=== PATIENT | male | born 1960 | race Caucasian/White ===

== ENCOUNTER 2017-06-02 16:28 | Emergency (ER) | payer OTHER, MEDICARE, MEDICAID ==
[~2017-06-02] VITALS: Ht 185.4 cm; Wt 121.0 kg
[~2017-06-02 16:28] MED LIST: CARV3.12 PO; FURO20TA4 PO; INSU100V11 SQ; LANTUS SQ; LISI10TA4 PO; METF10002 PO; SPIR25TA3 PO
[2017-06-02 16:47] VITALS: BP 189/119
[2017-06-02] MEDS ORDERED: HYDROcodone/acetaminophen 5mg/325mg tablet PO ONE (17:25)
[2017-06-02] MEDS ORDERED: ketorolac trometh inj. 60 MG/2 ML VIAL IM ONE (17:25)
[2017-06-02] MEDS ORDERED: IBUP-1985 PO (17:31)
[2017-06-02] MEDS ORDERED: HYDR-3965 PO (17:31)
== END 2017-06-02 17:48 | disposition home or self-care (01) ==
LOC: ER 16:29
DX: M25.512 Pain in left shoulder (principal); E11.9 Type 2 diabetes mellitus without complications; E78.00 Pure hypercholesterolemia, unspecified; I11.0 Hypertensive heart disease with heart failure; I48.91 Unspecified atrial fibrillation; I50.9 Heart failure, unspecified; J45.909 Unspecified asthma, uncomplicated; Z79.4 Long term (current) use of insulin; Z88.8 Allergy status to other drugs, medicaments and biological substances; W01.0XXA Fall on same level from slipping, tripping and stumbling without subsequent striking against object, initial encounter; Y93.01 Activity, walking, marching and hiking; Y92.89 Other specified places as the place of occurrence of the external cause; Y99.8 Other external cause status
CPT/HCPCS: 73030; 96372; 99284; A4565; J1885